=== PATIENT | male | born 1965 | race Caucasian/White ===

== ENCOUNTER 2017-07-21 07:02 | Inpatient (IN) | payer MEDICAID ==
[~2017-07-21] VITALS: Ht 172.7 cm; Wt 87.1 kg
[2017-07-21 07:08] VITALS: BP_SYST 134
--- NOTE | 2017-07-21 07:14 | NUR ---
P Addendum: 07/21/17 at 0714 by MITCH Patient to bed 7 to odalys for evaluation. Side rails up. Report given to Dacia MINER.
--- NOTE | 2017-07-21 07:20 | NUR ---
Pt complains of epigastric pain since yesterday morning. Pt states he feels "bloated with bile" each time he ingests food or drinks, and complains of generalized weakness. Pt states vomited and diarrhea x 2 since yesterday morning and has "chills." Pt ambulated into ER with family, no other injuries/complaints per pt or noted. Pt is NAD.
--- NOTE | 2017-07-21 07:43 | NUR ---
ER Dr. Carlos at bedside examining patient.
[2017-07-21] MEDS ORDERED: NACL 0.9% 1,000 ML IV ONE ×2 (07:52→09:30)
[2017-07-21] MEDS ORDERED: PANTOPRAZOLE SODIUM 40 MG/VIAL (PROTONIX) IVP ONE ×2 (08:00→11:00)
[2017-07-21] MEDS ORDERED: ONDANSETRON HCL 4 MG/2 ML VIAL IVP ONE (08:00)
--- NOTE | 2017-07-21 08:17 | NUR ---
Medications were given, pt tolerated well. No adverse reaction, will continue to monitor.
[2017-07-21 08:24] LABS: BASOPHILS % (AUTO) 0.4 % (0.0-2.0); EOSINOPHILS % (AUTO) 0.3 % (0.0-4.0); HEMATOCRIT 52.3 % (36-54); HEMOGLOBIN 17.4 g/dL (14.0-18.0); LYMPHOCYTES # (AUTO) 0.6 K/uL (1.0-5.5); LYMPHOCYTES % (AUTO) 8.5 % (20.5-51.5); MEAN CORPUSCULAR HEMOGLOBIN 29 pg (27-31); MEAN CORPUSCULAR HGB CONC 33 % (32-36); MEAN CORPUSCULAR VOLUME 88 fL (79.0-98.0); MONOCYTES # (AUTO) 0.5 K/uL (0.0-1.0); NEUTROPHILS # (AUTO) 6.3 K/uL (1.8-7.7); NEUTROPHILS % (AUTO) 83.8 % (40.0-70.0); PLATELET COUNT (AUTO) 198 K/uL (130-430); RED BLOOD CELL COUNT(AUTO) 5.97 MIL/uL (4.2-6.2); RED CELL DISTRIBUTION WIDTH 12.1 % (9.0-15.0); WHITE BLOOD COUNT (AUTO) 7.4 K/uL (4.8-10.8)
[2017-07-21 08:28] LABS: CALCIUM 9.4 mg/dL (8.4-11.0); CREATININE 1.2 mg/dL (0.55-1.30); POTASSIUM 4.1 mmol/L (3.5-5.1)
[2017-07-21 08:31] LABS: INR 1.1 (0.80-1.20); PROTHROMBIN TIME 11.9 SECS (9.5-12.5)
[2017-07-21 08:35] LABS: ALBUMIN 4.2 g/dL (3.4-4.8); TOTAL BILIRUBIN 3.8 mg/dL (0.0-1.0)
--- NOTE | 2017-07-21 09:08 | NUR ---
Pt resting comfortably in bed, pt states still feels weak but medications have helped. Will continue to monitor.
--- NOTE | 2017-07-21 09:19 | NUR ---
Dr. Carlos is at pt bedside explaining results.
[2017-07-21 10:13] LABS: BILIRUBIN,URINE NEGATIVE (NEGATIVE); BLOOD, URINE NEGATIVE (NEGATIVE); CLARITY/URINE CLEAR (CLEAR); COLOR,URINE YELLOW (YELLOW); GLUCOSE,URINE NEGATIVE (NEGATIVE); KETONES,URINE 3+ (NEGATIVE); LEUKOCYTE ESTERASE ,URINE NEGATIVE (NEGATIVE); NITRITE, URINE NEGATIVE (NEGATIVE); PH,URINE 7.5 (5.0-8.0); PROTEIN URINE TRACE (NEGATIVE)
--- NOTE | 2017-07-21 10:40 | NUR ---
Pt resting comfortably in bed, no acute distress. Pt states has a little bit of "bloating but no pain," MD is aware.
[2017-07-21 10:49] LABS: RBC,URINE 0-3 /HPF (0-3)
[2017-07-21 10:50] LABS: BACTERIA,URINE RARE /HPF (None Seen); WBC,URINE NONE SEEN /HPF (0-3)
--- NOTE | 2017-07-21 11:02 | NUR ---
Medications were given, pt tolerated well. No adverse reaction, will continue to monitor.
[2017-07-21] MEDS ORDERED: IOHEXOL 100 ML IV ONE (11:08)
--- NOTE | 2017-07-21 11:09 | NUR ---
Pt went to radiology in stable condition.
--- NOTE | 2017-07-21 11:19 | NUR ---
Pt returned from radiology in stable condition.
--- NOTE | 2017-07-21 12:55 | NUR ---
# 16 FR NG tube placed to Rt nare. Placement checked by auscultation of instilled air into stomach. Tubing taped in place to prevent dislodging. Patient tolerated well.
[2017-07-21] MEDS ORDERED: METOCLOPRAMIDE HCL 10 MG/2 ML VIAL IVP ONE (13:00)
[2017-07-21] MEDS ORDERED: LORazepam 2 MG/ML VIAL IVP ONE (13:00)
[2017-07-21] MEDS ORDERED: LORazepam 2 MG/ML VIAL (FOR ER USE) ONE (13:28)
[2017-07-21] MEDS ORDERED: D5LR 1,000 ML IV ONE (14:00)
--- NOTE | 2017-07-21 14:00 | NUR ---
Dr Wellington is at bedside examining pt.
--- NOTE | 2017-07-21 14:11 | NUR ---
Xray is at bedside.
--- NOTE | 2017-07-21 14:13 | NUR ---
Annalisa martinez in ED - 07/21/17 at 1413 by [email or web address] Xrholli is at bedside.
--- NOTE | 2017-07-21 14:16 | NUR ---
Patient will be admitted to care of Dr. Wellington. Admitted to Med Surg unit. Will go to room 102 B. Belongings list completed. Summary report printed. Report will be given at bedside.
--- NOTE | 2017-07-21 14:24 | NUR ---
ADMISSION NOTE Received patient from ER via mary anne, received report from GREGORY MINER. Patient admitted with diagnosis of SMALL BOWEL OBSTRUICTION/ILEUS. Patient oriented to hospital routine, call light, toileting and safety-patient verbalized understanding.
[2017-07-21] MEDS ORDERED: MORPHINE 4 MG/ML INJ. SYRINGE IVP PRN (14:30)
[2017-07-21] MEDS ORDERED: ONDANSETRON HCL 4 MG/2 ML VIAL IVP PRN (14:30)
[2017-07-21] MEDS ORDERED: LORazepam 2 MG/ML VIAL IVP PRN (14:30)
[2017-07-21] MEDS ORDERED: FAMOTIDINE PF 20 MG/2 ML VIAL IVP SCH (14:30)
[2017-07-21 14:31] VITALS: BP_SYST 127
[2017-07-21] MEDS ORDERED: FLU VACC QS 2017-18(36MOS+)/PF 0.5 ML/SYR SYRINGE I.M. PRN (14:45)
--- NOTE | 2017-07-21 14:50 | NUR ---
CONSULT CALLED TO DR VIZCAINO, RE: KERRY. SPOKE TO DEYA
--- NOTE | 2017-07-21 15:16 | NUR ---
CXR result NGT tip needs to advance NGT tip advance about 6 cm, placement verified by presence of gastric juices and auscultation.
[2017-07-21] MEDS ORDERED: FAMOTIDINE PF 20 MG/2 ML VIAL IVP ONE (16:00)
[2017-07-21] MEDS: MORPHINE 2 MG/ML INJ. SYRINGE IVP PRN ×2 (17:56→21:30)
--- NOTE | 2017-07-21 18:16 | NUR ---
CLOSING NOTE PT LAYING IN BED C/O ABDOMINAL PAIN AND ELAM. MEDICATED WITH MORPHINE FOR PAIN. NGT TO RT NARES SECURED IN PLACE. PT/FAMILY ASKING ABOUT CONNECTING NGT TO SUCTION. INFORMED PT/FAMILY THAT HE IS WAITING TO BE SEEN BY A SURGEON WHO WILL THEN DECIDE THE NEXT PLAN OF ACTION. VERBALIZED UNDERSTANDING. IVF INFUSING WELL INTO LT AC, NO S/S OF INFILTRATION NOTED. OFFERED PT INFLUENZA VACCINE BUT PT REFUSED, STATING THAT THE LAST TIME HE RECEIVED THE VACCINE HE GOT VERY SICK. SAFETY MEASURES IN PLACE WITH CALL LIGHT WITHIN REACH. PT ENCOURAGED TO USE CALL LIGHT FOR ASSISTANCE. VERBALIZED UNDERSTANDING. WILL ENDORSE TO NEXT SHIFT.
--- NOTE | 2017-07-21 19:45 | NUR ---
INITIAL NOTE Patient resting on the bed. No acute distress. Respiration even and unlabored. AO x 4. Stated that the pain medication that he got helped, still with little pain at this time. Skin warm and dry to touch. IV intact to LAC, no redness, no swelling, no drainage. On D5 LR at 100ml/hr, infusing well. at bedside. Discussed the safety issue, use call light when need help, and plan of care, verbally understanding. NGT intact to right nares. Safety measure maintained. Bed in low position, side rails up. Call light within reached. Will continue to monitor.
[2017-07-21 20:00] VITALS: BP_SYST 152
--- NOTE | 2017-07-21 20:20 | NUR ---
DR. CHAVEZ Received the call from Dr. Chavez. Reported the condition of the patient including admission diagnosis, catal[place] result of CT of abd/pelvis. stated that will come to see the patient later.
--- NOTE | 2017-07-21 21:10 | NUR ---
RECEIVED THE CALL FROM RADIOLOGY DEPT Malu called from radiology dept regarding the NGT placement. NGT tip at the level of diaphragm, recommended to advance approximately 6cm.
[2017-07-21] MEDS: FAMOTIDINE PF 20 MG/2 ML VIAL IVP SCH (21:18)
--- NOTE | 2017-07-21 21:28 | NUR ---
NGT ADVANCED 6CM PER RADIOLOGY DEPT RECOMMENDED. WILL REPEAT THE X-RAY TO CONFIRM THE PLACEMENT.
--- NOTE | 2017-07-21 21:45 | NUR ---
X-RAY DONE FOR NGT PLACEMENT
--- NOTE | 2017-07-21 22:05 | NUR ---
INTERMITTENT SUCTION VIA NGT STARTED. NO ACUTE DISTRESS. TOLERATED WELL.
--- NOTE | 2017-07-21 22:34 | NUR ---
DR. MCINTOSH IN THE UNIT Informed and showed Dr. Mcintosh the result of NGT placement in stomach. Patient c/o headache and Dr. Chavez called and stated that will come tonight to see the patient. Dr. Mcintosh with order NGT to intermittent suction.
--- NOTE | 2017-07-21 22:40 | NUR ---
DR. CHAVEZ VISITED Dr. Chavez assessed and talked to patient at bedside. Will continue the order of Dr. Wellington for NGT intermittent suction, keep NPO may have ice chip. Will check the result of x-ray small bowel follow through tomorrow.
[2017-07-21 23:55] VITALS: BP_SYST 156
[2017-07-22] MEDS: MORPHINE 2 MG/ML INJ. SYRINGE IVP PRN ×3 (00:02→05:38)
--- NOTE | 2017-07-22 00:02 | NUR ---
MORPHINE GIVEN Patient c/o abdomen pain 04/01, Morphine 2mg IVP given as ordered. No acute distress. Safety measure maintained. Bed in low position, side rails up. Call light within reached. Will continue to monitor.
[2017-07-22] MEDS: D5LR 1,000 ML IV SCH ×3 (00:10→18:35)
--- NOTE | 2017-07-22 01:45 | NUR ---
ROUND Patient resting on the bd with eyes closed. No acute distress. Respiration even and unlabored. NGT intact to low intermittent suction, with light greenish color of output. Safety measure maintained. Bed in low position, side rails up. Call light within reached. Continue to monitor.
--- NOTE | 2017-07-22 02:56 | NUR ---
MORPHINE GIVEN Patient c/o abdomen pain 04/01, Morphine 2mg IVP given as ordered. No acute distress. Continue intermittent suction via NGT. Safety measure maintained. Bed in low position, side rails up. Call light within reached. Will continue to monitor.
[2017-07-22 04:09] VITALS: BP_SYST 134
--- NOTE | 2017-07-22 04:35 | NUR ---
ROUND Patient resting on the bed with eyes closed. No acute distress. Respiration even and unlabored. Continue on low intermittent suction via NGT. IV intact, IVF infusing well. Safety measure maintained. Call light within reached. Bed in low position, side rails up. Continue to monitor.
--- NOTE | 2017-07-22 06:26 | NUR ---
CLOSING NOTE Patient resting on the bed with eyes closed. No acute distress. Respiration even and unlabored. IV intact, IVF infusing well. NG tube intact to right nares, connected to low intermittent suction with 450ml of greenish color output. PRN pain med given as needed. All needs met. Hourly rounding during shift. Safety measure maintained. Bed in low position, side rails up. Call light within reached. Will endorse to morning shift nurse.
[2017-07-22 06:58] LABS: BASOPHILS % (AUTO) 0.1 % (0.0-2.0); EOSINOPHILS % (AUTO) 0.5 % (0.0-4.0); HEMATOCRIT 43.8 % (36-54); HEMOGLOBIN 14.8 g/dL (14.0-18.0); LYMPHOCYTES # (AUTO) 1.2 K/uL (1.0-5.5); LYMPHOCYTES % (AUTO) 18.7 % (20.5-51.5); MEAN CORPUSCULAR HEMOGLOBIN 30 pg (27-31); MEAN CORPUSCULAR HGB CONC 34 % (32-36); MEAN CORPUSCULAR VOLUME 88 fL (79.0-98.0); MONOCYTES # (AUTO) 0.7 K/uL (0.0-1.0); MONOCYTES % (AUTO) 10.1 % (1.7-9.3); NEUTROPHILS # (AUTO) 4.6 K/uL (1.8-7.7); NEUTROPHILS % (AUTO) 70.6 % (40.0-70.0); PLATELET COUNT (AUTO) 164 K/uL (130-430); RED BLOOD CELL COUNT(AUTO) 4.98 MIL/uL (4.2-6.2); RED CELL DISTRIBUTION WIDTH 11.9 % (9.0-15.0); WHITE BLOOD COUNT (AUTO) 6.5 K/uL (4.8-10.8)
[2017-07-22 07:15] LABS: ALBUMIN 3.1 g/dL (3.4-4.8); CALCIUM 8.6 mg/dL (8.4-11.0); CREATININE 1.11 mg/dL (0.55-1.30); POTASSIUM 3.7 mmol/L (3.5-5.1); TOTAL BILIRUBIN 1.7 mg/dL (0.0-1.0)
[2017-07-22] MEDS ORDERED: GASTROGRAFIN 120 ML ONE (07:18)
[2017-07-22 08:00] VITALS: BP_SYST 151
--- NOTE | 2017-07-22 08:00 | NUR ---
Opening Note Report received from Lynn MINER. Patient is in stable condition. NG tube is on the right nares to low intermittent suction. Iv is on the LAC 20g D5LR@120ml. Patient is NPO for a small bowel series today. Will follow up.
[2017-07-22] MEDS: FAMOTIDINE PF 20 MG/2 ML VIAL IVP SCH ×2 (09:50→21:12)
--- NOTE | 2017-07-22 10:02 | NUR ---
Rounds Patient is currently getting an x-ray at the moment.
[2017-07-22 12:00] VITALS: BP_SYST 143
--- NOTE | 2017-07-22 12:30 | NUR ---
Rounds Patient is currently resting in bed. Call light is within reach. Bed is in low position.
--- NOTE | 2017-07-22 14:35 | NUR ---
NG tube removed NG tube removed per Dr. Chavez's order. Patient tolerated well.
--- NOTE | 2017-07-22 14:53 | NUR ---
PAGE CALLED FOR DR. ARREDONDO. SPOKE TO HERMELINDA, DIALED [phone].
--- NOTE | 2017-07-22 16:45 | NUR ---
MD Rounds Dr. Chavez rounded on the patient. MD ordered Reglan PO. Will follow up.
[2017-07-22] MEDS ORDERED: METOCLOPRAMIDE HCL 10 MG TABLET PO PRN (17:00)
[2017-07-22 17:12] VITALS: BP_SYST 117
--- NOTE | 2017-07-22 18:42 | NUR ---
Closing Note Dr. Wellington rounded on the patient. No change in orders. Patient is in stable condition and is tolerating clear liquids well. IV is on the LAC 20g running D5LR@120. Will endorse care to the oncoming nurse.
--- NOTE | 2017-07-22 19:20 | NUR ---
CHANGE OF SHIFT: pt. up to restroom when checked, pt. noted to have loose bm. at bedside.
[2017-07-22 20:00] VITALS: BP_SYST 142
--- NOTE | 2017-07-22 20:00 | NUR ---
NOTES: pt. awake, alert and oriented. IVF infusing via left antecubital with D5LR @ 120 cc/hr. denies any nausea nor vomiting, no abdominal pain. NGT removed today and started on clear liquid today. VS checked, temp 100, no Tylenol order, will call MD. pt. wants to take a shower,will get him ready, still at bedside.
--- NOTE | 2017-07-22 21:00 | NUR ---
NOTES: called Dr. Wellington and informed him about the temp with order of Tylenol and labs in am.
--- NOTE | 2017-07-22 21:27 | NUR ---
PAGED DR MCINTOSH [phone], YVETTE KU
[2017-07-22] MEDS: ACETAMINOPHEN 325 MG TABLET PO PRN (22:20)
--- NOTE | 2017-07-22 22:20 | NUR ---
NOTES: pt. given Tylenol for his mild pain and temp.100, oral liquids tolerated. IVF continuous.
[2017-07-23 00:11] VITALS: BP_SYST 112
--- NOTE | 2017-07-23 00:30 | NUR ---
NOTES: pt. sleeping soundly when checked. no complaints of pain.
--- NOTE | 2017-07-23 03:00 | NUR ---
NOTES: condition unchanged. continue to monitor. IVF infusing.
[2017-07-23 04:03] VITALS: BP_SYST 124
[2017-07-23] MEDS: D5LR 1,000 ML IV SCH ×2 (05:52→14:14)
--- NOTE | 2017-07-23 06:00 | NUR ---
NOTES; pt. sleeping and awakened, IV alarming, changed bag. denies any discomfort. for further assistance.
[2017-07-23 06:44] LABS: BASOPHILS % (AUTO) 0.3 % (0.0-2.0); EOSINOPHILS # (AUTO) 0.2 K/uL (0.0-0.4); EOSINOPHILS % (AUTO) 3.4 % (0.0-4.0); HEMATOCRIT 40.5 % (36-54); HEMOGLOBIN 13.6 g/dL (14.0-18.0); LYMPHOCYTES # (AUTO) 1.4 K/uL (1.0-5.5); LYMPHOCYTES % (AUTO) 25.1 % (20.5-51.5); MEAN CORPUSCULAR HEMOGLOBIN 30 pg (27-31); MEAN CORPUSCULAR HGB CONC 34 % (32-36); MEAN CORPUSCULAR VOLUME 89 fL (79.0-98.0); MONOCYTES # (AUTO) 0.6 K/uL (0.0-1.0); MONOCYTES % (AUTO) 11.7 % (1.7-9.3); NEUTROPHILS # (AUTO) 3.2 K/uL (1.8-7.7); NEUTROPHILS % (AUTO) 59.5 % (40.0-70.0); PLATELET COUNT (AUTO) 154 K/uL (130-430); RED BLOOD CELL COUNT(AUTO) 4.56 MIL/uL (4.2-6.2); RED CELL DISTRIBUTION WIDTH 12.2 % (9.0-15.0); WHITE BLOOD COUNT (AUTO) 5.4 K/uL (4.8-10.8)
[2017-07-23 07:15] LABS: ALBUMIN 2.9 g/dL (3.4-4.8); CALCIUM 8.7 mg/dL (8.4-11.0); CREATININE 1.05 mg/dL (0.55-1.30); POTASSIUM 3.8 mmol/L (3.5-5.1); TOTAL BILIRUBIN 1.3 mg/dL (0.0-1.0)
--- NOTE | 2017-07-23 07:20 | NUR ---
endorsed pt. to incoming shift with nurse Dennis
--- NOTE | 2017-07-23 07:34 | NUR ---
Initial notes: patient on bed awake, alert and oriented. I.V. access in placed. Discussed plan of care. Safety measures in placed. call light within reach. Report received from clay press operator.
[2017-07-23 07:53] VITALS: BP_SYST 129
[2017-07-23] MEDS: FAMOTIDINE PF 20 MG/2 ML VIAL IVP SCH (08:05)
[2017-07-23] MEDS: ACETAMINOPHEN 325 MG TABLET PO PRN (08:08)
--- NOTE | 2017-07-23 08:14 | NUR ---
rounds: patient having breakfast. tolerated the clear diet.
[2017-07-23] MEDS: BENZOCAINE/MENTHOL 1 EACH LOZENGE MM PRN ×2 (10:00→16:14)
--- NOTE | 2017-07-23 10:01 | NUR ---
rounds: patient on bed resting. no distress noted.
--- NOTE | 2017-07-23 11:56 | NUR ---
rounds: patient on bed eating lunch. no changed in condition.
[2017-07-23 12:20] VITALS: BP_SYST 123
--- NOTE | 2017-07-23 12:49 | NUR ---
rounds: patient on bed with family at bedside. no distress noted.
--- NOTE | 2017-07-23 14:17 | NUR ---
rounds: patient on bed talking to family. no distress noted.
--- NOTE | 2017-07-23 14:18 | NUR ---
Diet: pt verbalized he feels" bloated after eating the full liq diet". Denies N/V.
--- NOTE | 2017-07-23 16:15 | NUR ---
rounds: patient resting on bed. no distress noted.
[2017-07-23 16:49] VITALS: BP_SYST 139
--- NOTE | 2017-07-23 17:00 | NUR ---
Edwin rounds: Seen by Dr. Wellington with D/C after dinner if no vomiting or abdominal pain.
[2017-07-23 18:25] VITALS: BP_SYST 139
--- NOTE | 2017-07-23 18:45 | NUR ---
diet: patient denies abdominal pain. tolerated the diet and no nausea.
== END 2017-07-23 19:15 | disposition home or self-care (01) | DRG 247 ==
LOC: SED 07:02 → SMU 13:50
PROVIDERS: ADMIT Internal Medicine; ATTEND Internal Medicine
DX: K56.609 Unspecified intestinal obstruction, unspecified as to partial versus complete obstruction (principal); E66.9 Obesity, unspecified; K56.7 Ileus, unspecified; Z90.49 Acquired absence of other specified parts of digestive tract; Z91.018 Allergy to other foods; Z80.9 Family history of malignant neoplasm, unspecified; Z68.29 Body mass index [BMI] 29.0-29.9, adult
CPT/HCPCS: 36415; 71010; 74000-TC; 74250-TC; 80053; 81000-TC; 82150-TC; 83690-TC; 84484; 85025; 85610-TC; 87230-TC; 93005; 96361; 96374; 96375; 96376; 99285; C9113; J2060; J2270; J2405; J2765; J3490; J7030; J7120; Q9963; Q9967